=== PATIENT | male | born 1995 | race Asian ===

== ENCOUNTER 2024-11-28 03:42 | Emergency (ER) | payer OTHER ==
[~2024-11-28] VITALS: Ht 165.1 cm; Wt 64.0 kg
[2024-11-28 03:45] VITALS: O2SAT 98
[2024-11-28 04:26] LABS: BASOPHILS % 1.1 % (0.0-2.0); EOSINOPHILS % 2.9 % (0.0-5.0); HEMATOCRIT. 41.2 % (42.0-52.0); HEMOGLOBIN. 14.2 g/dL (14.0-18.0); LYMPHOCYTES % 44.8 % (20.0-50.0); MEAN PLATELET VOLUME 7.9 fl (7.4-10.4); MONOCYTES % 5.8 % (2.0-8.0); NEUTROPHILS % 45.4 % (40.0-76.0); PLATELET 238 x1000/uL (130-400); RED BLOOD CELL COUNT 4.68 mill/uL (4.7-6.1); RED CELL DISTRIBUTION WIDTH 12.8 % (11.6-14.6)
[2024-11-28 04:43] LABS: CREATININE 1.1 mg/dL (0.6-1.3)
[2024-11-28 04:44] LABS: ETHANOL BLOOD < 10 mg/dL (<10); UREA NITROGEN BLOOD 19 mg/dL (9-23)
[2024-11-28 04:45] LABS: ASPARTATE AMINOTRANSFERASE 27 IU/L (<34); TROPONIN I HIGH SENSITIVITY < 4 ng/L (3.0-53)
[2024-11-28 04:46] LABS: BILIRUBIN DIRECT 0.1 mg/dL (<=3.0); BILIRUBIN TOTAL 0.4 mg/dL (0.1-1.0); PROTEIN TOTAL 6.9 g/dL (6.0-8.3)
[2024-11-28] MEDS: KETOROLAC 15MG/ML VIAL IV ONE (04:57)
[2024-11-28 06:31] VITALS: BP 101/59; PULSE 87; RESP 13; TEMP 36.7; O2SAT 100
== END 2024-11-28 06:40 | disposition home or self-care (01) ==
LOC: ER 03:42
DX: F12.90 Cannabis use, unspecified, uncomplicated (principal); I95.9 Hypotension, unspecified; R07.9 Chest pain, unspecified
CPT/HCPCS: 36415; 80048; 80076; 80320; 84484; 85025; 93005; 99284; G0480